=== PATIENT | female | born 1980 | race Two or more races ===

== ENCOUNTER 2017-05-23 16:16 | Inpatient (IN) | payer OTHER ==
[2017-05-23 17:05] VITALS: BMI 18.6
--- NOTE | 2017-05-23 20:43 | HP ---
CIWA Score - CIWA Score Nausea/Vomitin-Mild Nausea/No Vomiting Muscle Tremors: 3 Anxiety: 2 Agitation: 0-Normal Activity Paroxysmal Sweats: 2 Orientation: 2-Disoriented Date<2 days (reports today's date as 05/25/17) Tacttile Disturbances: 0-None Auditory Disturbances: 2-Mild Harshness/Frighten (reports has auditory hallucination, denies hallucinations at this time) Visual Disturbances: 1-Very Mild Sensitivity Headache: 3-Moderate CIWA-Ar Total Score: 16 Admission ROS S - HPI Chief Complaint: alcohol withdrawal symptoms Allergies/Adverse Reactions: Allergies Allergy/AdvReac Type Severity Reaction Status Date / Time morphine Allergy Severe Vomiting Verified 05/23/17 17:11 History of Present Illness: 36 yo female with hx of PCP, K2, alcohol and nicotine dependence is seeking detox for the first time. PMHX: depression, anxiety, and anemia. Reports in the past has auditory hallucinations in which the voices tell her she is worthless, no one loves her." Reports feeling extreme sadness after aunt from drug overdose recently. Denies suicidal / homicidal ideation, or suicide attempts. Denies overdose or seizure. Reports no period of sobriety. Reports after care plans to attend rehab. Exam Limitations: No Limitations - Ebola screening Have you traveled outside of the country in the last 21 days: No Have you had contact with anyone from an Ebola affected area: No Have you been sick,other than usual withdrawal symptoms: No Do you have a fever: No - Review of Systems Constitutional: Chills, Loss of Appetite, Night Sweats, Weakness EENT: reports: Nose Congestion (chonic) Respiratory: reports: Other (no SOB at this time, but get SOB during extreme weather, primarily during cold weather) Cardiac: reports: No Symptoms Reported GI: reports: Nausea, Poor Fluid Intake : reports: Frequency Musculoskeletal: reports: Back Pain Integumentary: reports: No Symptoms Reported Neuro: reports: Headache, Weakness Endocrine: reports: Excessive Sweating, Increased Thirst Hematology: reports: Anemia Psychiatric: reports: Orientated x3, Depressed Other Systems: Reviewed and Negative Patient History - Patient Medical History Hx Anemia: Yes Hx Asthma: No Hx Chronic Obstructive Pulmonary Disease (COPD): No Hx Cancer: No Hx Cardiac Disorders: No Hx Congestive Heart Failure: No Hx Hypertension: No Hx Hypercholesterolemia: No Hx Pacemaker: No HX Cerebrovascular Accident: No Hx Seizures: No Hx Dementia: No Hx Diabetes: No Hx Gastrointestinal Disorders: No Hx Liver Disease: No Hx Genitourinary Disorders: No Hx Sexually Transmitted Disorders: No Hx Renal Disease (ESRD): No Hx Thyroid Disease: No Hx Human Immunodeficiency Virus (HIV): No Hx Hepatitis C: No Hx Depression: Yes Hx Suicide Attempt: No Hx Bipolar Disorder: No Hx Schizophrenia: No - Patient Surgical History Past Surgical History: No - PPD History Previous Implant?: Yes Documented Results: Negative w/o proof Implanted On Prior [facility] Admission?: No - Reproductive History Last Menstrual Period: 04/27/17 Patient : No - Smoking Cessation Smoking history: Current every day smoker Have you smoked in the past 12 months: Yes Aproximately how many cigarettes per day: 3 Hx Chewing Tobacco Use: No Initiated information on smoking cessation: Yes 'Breaking Loose' booklet given: 05/23/17 - Substance & Tx. History Substance Use Type: Alcohol, Marijuana Hx Substance Use Treatment: No - Substances Abused Alcohol Route: Oral Frequency: Daily Amount used: 3-4 22 oz beers Age of first use: 16 Date of Last Use: 05/22/17 K2 Route: Smoking Frequency: Daily Amount used: 2 bags Age of first use: 32 Date of Last Use: 05/20/17 Family Disease History - Family Disease History Family Disease History: Heart Disease: Father (alive, HTN ), Mother (alive), Other: Father, Mother Other Family History: uncles and aunts have DM II Admission Physical Exam S - Vital Signs Vital Signs: Vital Signs - 24 hr 05/23/17 17:02 Temperature 96.6 F L Pulse Rate 90 Respiratory 18 Rate Blood Pressure 119/65 - Physical General Appearance: Yes: Appropriately Dressed, Mild Distress (patient was tearful through the assesment), Sweating, Anxious HEENTM: Yes: EOMI, Hearing grossly Normal, Normal ENT Inspection, Normocephalic , Normal Voice, JOSE ALEJANDRO, Pharynx Normal, Tm's normal, Other (dry mucous memebranes) Respiratory: Yes: Chest Non-Tender, Lungs Clear, Normal Breath Sounds, No Respiratory Distress, No Accessory Muscle Use Neck: Yes: Within Normal Limits Breast: Yes: Breast Exam Deferred Cardiology: Yes: Regular Rhythm, Regular Rate Abdominal: Yes: Normal Bowel Sounds, Non Tender, Flat, Soft Genitourinary: Yes: Frequency Back: Yes: Within Normal Limits Musculoskeletal: Yes: full range of Motion, Gait Steady, Pelvis Stable, Back pain Extremities: Yes: Normal Capillary Refill, Normal Inspection, Normal Range of Motion, Non-Tender Neurological: Yes: oracle soa architect II-XII NML intact, Fully Oriented, Alert, Motor Strength 5/5, Depressed Affect Integumentary: Yes: Normal Color, Warm, Moist, Other (poor skin turgor) Lymphatic: Yes: Within Normal Limits - Diagnostic (1) Bereavement Current Visit: Yes Status: Acute (2) Depression (emotion) Current Visit: Yes Status: Acute Qualifiers: Depression Type: dysthymia Qualified Code(s): F34.1 - Dysthymic disorder (3) Alcohol dependence with withdrawal Current Visit: Yes Status: Acute Qualifiers: Complication of substance-induced condition: uncomplicated Qualified Code(s ): F10.230 - Alcohol dependence with withdrawal, uncomplicated (4) Dehydration Current Visit: Yes Status: Acute (5) Nicotine dependence Current Visit: Yes Status: Acute Qualifiers: Nicotine product type: cigarettes (6) PCP dependence Current Visit: Yes Status: Acute (7) Cannabis dependence Current Visit: Yes Status: Acute Cleared for Admission [facility] - Detox or Rehab [facility] Level of Care: Medically Managed Detox Regimen/Protocol: Librium [facility] Breath Alcohol Content Breath Alcohol Content: 0 Urine Pregancy Test - Result Urine Test Results: Negative- NO Line Present Urine Drug Screen - Results Drug Screen Negative: Yes
[2017-05-23] MEDS ORDERED: MENTHOL/PHENOL 1 EACH UD MM PRN (21:00)
[2017-05-23] MEDS ORDERED: hydrOXYzine PAMOATE 50 MG CAPSULE (FP) PO PRN (21:00)
[2017-05-23] MEDS ORDERED: chlordiazePOXIDE HCL 25 MG CAPSULE PO ONE (21:00)
[2017-05-23] MEDS ORDERED: MAGNESIUM CITRATE 300 ML BOTTLE PO PRN (21:00)
[2017-05-23] MEDS ORDERED: P-EPHED 60MG/TRIPROLIDI 2.5MG TABLET PO PRN (21:00)
[2017-05-23] MEDS ORDERED: IBUPROFEN 400 MG TABLET (FP) PO PRN (21:00)
[2017-05-23] MEDS ORDERED: guaiFENesin/D-METHORPHAN HB 10 ML UNIT-DOSE CUPS PO PRN (21:00)
[2017-05-23] MEDS ORDERED: chlordiazePOXIDE HCL 25 MG CAPSULE PO PRN (21:00)
[2017-05-23] MEDS ORDERED: MAGNESIUM HYDROX 2400MG/30ML ORAL SUSPENSION 30 ML CUP PO PRN (21:00)
[2017-05-23] MEDS ORDERED: NICOTINE POLACRILEX 2 MG GUM BC PRN (21:00)
[2017-05-23] MEDS ORDERED: MAG HYDROX/AL HYDROX/SIMETH 30 ML UNIT-DOSE CUP PO PRN (21:00)
[2017-05-23] MEDS ORDERED: ACETAMINOPHEN 325 MG TABLET (FP) PO PRN (21:00)
[2017-05-23] MEDS ORDERED: LOPERAMIDE HCL 2 MG CAPSULE PO PRN (21:00)
[2017-05-23] MEDS ORDERED: MELATONIN 5 MG TABLETS PO PRN (22:00)
[2017-05-23] MEDS: chlordiazePOXIDE HCL 25 MG CAPSULE PO SCH (23:51)
[2017-05-23] MEDS: THIAMINE HCL 100 MG TABLET (FP) PO SCH (23:53)
[2017-05-24 02:05] LABS: URINE APPEARANCE SLCLOUDY; URINE BILIRUBIN NEGATIVE (<2.0 mg/dL); URINE BLOOD NEGATIVE (NEGATIVE); URINE COLOR YELLOW; URINE GLUCOSE (UA) NEGATIVE (NEGATIVE); URINE KETONE NEGATIVE (NEGATIVE); URINE LEUK ESTERASE NEGATIVE (NEGATIVE); URINE NITRITE NEGATIVE (NEGATIVE); URINE PROTEIN NEGATIVE (NEGATIVE); URINE UROBILINOGEN NEGATIVE mg/dL (0.2-1.0)
[2017-05-24] MEDS: chlordiazePOXIDE HCL 25 MG CAPSULE PO SCH ×3 (06:27→10:22)
[2017-05-24 10:02] LABS: HEMATOCRIT 27.6 % (32.4-45.2); HEMOGLOBIN 9.1 GM/dL (10.7-15.3); MCH 26.9 pg (25.7-33.7); MCHC 32.9 g/dl (32.0-36.0); MEAN PLT VOLUME 8.4 fl (7.5-11.1); PLATELET COUNT 301 K/MM3 (134-434); RBC 3.36 M/mm3 (3.60-5.2); RDW 17.2 % (11.6-15.6); WHITE BLOOD COUNT 4.5 K/mm3 (4.0-10.0)
[2017-05-24] MEDS: PRENATAL VITAMINS W/ FOLIC ACID TABLET (FP) PO SCH (10:19)
[2017-05-24] MEDS: NICOTINE 14 MG/24 HOURS TOPICAL PATCH TD SCH (10:19)
[2017-05-24 10:25] LABS: CHLORIDE 106 mmol/L (98-107); POTASSIUM 4.2 mmol/L (3.5-5.1); SODIUM 140 mmol/L (136-145)
[2017-05-24 10:46] LABS: ALBUMIN 2.9 g/dl (3.4-5.0); ALK PHOS 51 U/L (45-117); ANION GAP 6 (8-16); BILIRUBIN,TOTAL 0.3 mg/dL (0.2-1.0); BLOOD UREA NITROGEN 14 mg/dL (7-18); CALCIUM 7.8 mg/dL (8.5-10.1); CO2 28 mmol/L (21-32); CREATININE 0.7 mg/dL (0.55-1.02); GLUCOSE,RANDOM 84 mg/dL (74-106); SGOT/AST 19 U/L (15-37); SGPT/ALT 38 U/L (12-78)
[2017-05-24] MEDS ORDERED: diazePAM 5 MG TABLET PO PRN (10:50)
--- NOTE | 2017-05-24 10:56 | PN ---
S CIWA - CIWA Score Nausea/Vomitin Muscle Tremors: 3 Anxiety: 3 Agitation: 3 Paroxysmal Sweats: 1-Minimal Palms Moist Orientation: 0-Oriented Tacttile Disturbances: 1-Very Mild Itch/Numbness Auditory Disturbances: 1-Very Mild Visual Disturbances: 0-None Headache: 2-Mild CIWA-Ar Total Score: 17 [facility] Progress Note (SOAP) Subjective: ALERT,IRRITABLE,ANXIOUS,INTERRUPTED SLEEP,TREMOR,PAIN IN THE BODY Objective: 05/24/17 10:52 Vital Signs Temperature 97.3 F L 05/24/17 09:52 Pulse Rate 80 05/24/17 09:52 Respiratory Rate 20 05/24/17 09:52 Blood Pressure 114/58 05/24/17 09:52 O2 Sat by Pulse Oximetry (%) EKG NSR,NORMAL Laboratory Last Values WBC 4.5 K/mm3 (4.0-10.0) 05/24/17 07:00 RBC 3.36 M/mm3 (3.60-5.2) L 05/24/17 07:00 Hgb 9.1 GM/dL (10.7-15.3) L 05/24/17 07:00 Hct 27.6 % (32.4-45.2) L 05/24/17 07:00 MCV 82.0 fl (80-96) 05/24/17 07:00 MCH 26.9 pg (25.7-33.7) 05/24/17 07:00 MCHC 32.9 g/dl (32.0-36.0) 05/24/17 07:00 RDW 17.2 % (11.6-15.6) H 05/24/17 07:00 Plt Count 301 K/MM3 (134-434) 05/24/17 07:00 MPV 8.4 fl (7.5-11.1) 05/24/17 07:00 Urine Color Yellow 05/23/17 22:00 Urine Appearance Slcloudy 05/23/17 22:00 Urine pH 6.0 (5.0-8.0) 05/23/17 22:00 Ur Specific [place] 1.023 (1.001-1.035) 05/23/17 22:00 Urine Protein Negative (NEGATIVE) 05/23/17 22:00 Urine Glucose (UA) Negative (NEGATIVE) 05/23/17 22:00 Urine Ketones Negative (NEGATIVE) 05/23/17 22:00 Urine Blood Negative (NEGATIVE) 05/23/17 22:00 Urine Nitrite Negative (NEGATIVE) 05/23/17 22:00 Urine Bilirubin Negative (<2.0 mg/dL) 05/23/17 22:00 Urine Urobilinogen Negative mg/dL (0.2-1.0) 05/23/17 22:00 Ur Leukocyte Esterase Negative (NEGATIVE) 05/23/17 22:00 CMP,RPR PENDING Assessment: 05/24/17 10:54 WITHDRAWAL SYMPTOM,REGIMEN CHANGED TO VALIUM BY PATIENT'S REQUESTED,HISTORY OF ANEMIA,FERROUS SULFATE 325 MGS PO BID,ENSURE PLUS 120 MLS PO BID,PSYCHIATRIC EVALUATION MULTIPLE DRUG USE AND PCP Plan: CONTINUE DETOX
[2017-05-24] MEDS ORDERED: diazePAM 5 MG TABLET PO ONE (11:10)
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
[2017-05-24] MEDS: FERROUS SO4 325 MG TABLET (FP) PO SCH ×2 (12:25→22:22)
[2017-05-24] MEDS: diazePAM 5 MG TABLET PO SCH ×2 (14:58→22:22)
--- NOTE | 2017-05-24 16:46 | EKG ---
Test Reason : Blood Pressure : / mmHG Vent. Rate : 083 BPM Atrial Rate : 083 BPM P-R Int : 136 ms QRS Dur : 080 ms QT Int : 354 ms P-R-T Axes : 070 048 045 degrees QTc Int : 415 ms NORMAL SINUS RHYTHM NORMAL ECG NO PREVIOUS ECGS AVAILABLE Confirmed by MD Vik, Jorge ([id number]) on 05/24/2017 4:46:45 PM Referred By: Confirmed By:Jorge Chery MD
[2017-05-24] MEDS: QUEtiapine FUMARATE 50 MG TABLET PO SCH (22:22)
[2017-05-24] MEDS: THIAMINE HCL 100 MG TABLET (FP) PO SCH (22:22)
[2017-05-24] MEDS ORDERED: chlordiazePOXIDE HCL 25 MG CAPSULE PO SCH (23:00)
[2017-05-25] MEDS: diazePAM 5 MG TABLET PO SCH ×3 (06:58→22:46)
--- NOTE | 2017-05-25 10:07 | PN ---
S CIWA - CIWA Score Nausea/Vomitin Muscle Tremors: 3 Anxiety: 3 Agitation: 3 Paroxysmal Sweats: 1-Minimal Palms Moist Orientation: 0-Oriented Tacttile Disturbances: 1-Very Mild Itch/Numbness Auditory Disturbances: 1-Very Mild Visual Disturbances: 0-None Headache: 2-Mild CIWA-Ar Total Score: 17 [facility] Progress Note (SOAP) Subjective: ALERT,IRRITABLE,ANXIOUS,INTERRUPTED SLEEP,TREMOR Objective: 05/25/17 10:06 Vital Signs Temperature 97 F L 05/25/17 06:31 Pulse Rate 85 05/25/17 06:31 Respiratory Rate 18 05/25/17 06:31 Blood Pressure 110/64 05/25/17 06:31 O2 Sat by Pulse Oximetry (%) Laboratory Last Values WBC 4.5 K/mm3 (4.0-10.0) 05/24/17 07:00 RBC 3.36 M/mm3 (3.60-5.2) L 05/24/17 07:00 Hgb 9.1 GM/dL (10.7-15.3) L 05/24/17 07:00 Hct 27.6 % (32.4-45.2) L 05/24/17 07:00 MCV 82.0 fl (80-96) 05/24/17 07:00 MCH 26.9 pg (25.7-33.7) 05/24/17 07:00 MCHC 32.9 g/dl (32.0-36.0) 05/24/17 07:00 RDW 17.2 % (11.6-15.6) H 05/24/17 07:00 Plt Count 301 K/MM3 (134-434) 05/24/17 07:00 MPV 8.4 fl (7.5-11.1) 05/24/17 07:00 Sodium 140 mmol/L (136-145) 05/24/17 07:00 Potassium 4.2 mmol/L (3.5-5.1) 05/24/17 07:00 Chloride 106 mmol/L (98-107) 05/24/17 07:00 Carbon Dioxide 28 mmol/L (21-32) 05/24/17 07:00 Anion Gap 6 (8-16) L 05/24/17 07:00 BUN 14 mg/dL (7-18) 05/24/17 07:00 Creatinine 0.7 mg/dL (0.55-1.02) 05/24/17 07:00 Creat Clearance w eGFR > 60 (>60) 05/24/17 07:00 Random Glucose 84 mg/dL (74-106) 05/24/17 07:00 Calcium 7.8 mg/dL (8.5-10.1) L 05/24/17 07:00 Total Bilirubin 0.3 mg/dL (0.2-1.0) 05/24/17 07:00 AST 19 U/L (15-37) 05/24/17 07:00 ALT 38 U/L (12-78) 05/24/17 07:00 Alkaline Phosphatase 51 U/L (45-117) 05/24/17 07:00 Total Protein 6.0 g/dl (6.4-8.2) L 05/24/17 07:00 Albumin 2.9 g/dl (3.4-5.0) L 05/24/17 07:00 Urine Color Yellow 05/23/17 22:00 Urine Appearance Slcloudy 05/23/17 22:00 Urine pH 6.0 (5.0-8.0) 05/23/17 22:00 Ur Specific [place] 1.023 (1.001-1.035) 05/23/17 22:00 Urine Protein Negative (NEGATIVE) 05/23/17 22:00 Urine Glucose (UA) Negative (NEGATIVE) 05/23/17 22:00 Urine Ketones Negative (NEGATIVE) 05/23/17 22:00 Urine Blood Negative (NEGATIVE) 05/23/17 22:00 Urine Nitrite Negative (NEGATIVE) 05/23/17 22:00 Urine Bilirubin Negative (<2.0 mg/dL) 05/23/17 22:00 Urine Urobilinogen Negative mg/dL (0.2-1.0) 05/23/17 22:00 Ur Leukocyte Esterase Negative (NEGATIVE) 05/23/17 22:00 RPR Titer Nonreactive (NONREACTIVE) 05/24/17 07:00 HIV 1&2 Antibody Screen Negative 05/24/17 07:00 HIV P24 Antigen Negative 05/24/17 07:00 Assessment: 05/25/17 10:06 WITHDRAWAL SYMPTOM Plan: CONTINUE DETOX
[2017-05-25] MEDS: FERROUS SO4 325 MG TABLET (FP) PO SCH ×2 (10:46→22:27)
[2017-05-25] MEDS: PRENATAL VITAMINS W/ FOLIC ACID TABLET (FP) PO SCH (10:46)
[2017-05-25] MEDS: NICOTINE 14 MG/24 HOURS TOPICAL PATCH TD SCH (10:46)
[2017-05-25] MEDS: THIAMINE HCL 100 MG TABLET (FP) PO SCH (22:27)
[2017-05-25] MEDS: QUEtiapine FUMARATE 50 MG TABLET PO SCH (22:27)
[2017-05-25] MEDS ORDERED: chlordiazePOXIDE 5 MG CAPSULE PO SCH (23:00)
[2017-05-26] MEDS: NICOTINE 14 MG/24 HOURS TOPICAL PATCH TD SCH (10:10)
[2017-05-26] MEDS: diazePAM 5 MG TABLET PO SCH ×2 (10:10→22:07)
[2017-05-26] MEDS: FERROUS SO4 325 MG TABLET (FP) PO SCH ×2 (10:10→22:07)
[2017-05-26] MEDS: PRENATAL VITAMINS W/ FOLIC ACID TABLET (FP) PO SCH (10:10)
--- NOTE | 2017-05-26 11:17 | PN ---
S Progress Note (SOAP) Subjective: ALERT,IRRITABLE,ANXIOUS,INTERRUPTED SLEEP,FEEL WEAK Objective: 05/26/17 11:17 Vital Signs Temperature 97.1 F L 05/26/17 11:02 Pulse Rate 100 H 05/26/17 11:02 Respiratory Rate 20 05/26/17 11:02 Blood Pressure 115/65 05/26/17 11:02 O2 Sat by Pulse Oximetry (%) Assessment: 05/26/17 11:17 WITHDRAWAL SYMPTOM Plan: CONTINUE DETOX,DISCHARGE IN AM
[2017-05-26] MEDS: THIAMINE HCL 100 MG TABLET (FP) PO SCH (22:07)
[2017-05-26] MEDS: QUEtiapine FUMARATE 50 MG TABLET PO SCH (22:07)
[2017-05-26] MEDS ORDERED: chlordiazePOXIDE HCL 10 MG CAPSULE PO SCH (23:00)
--- NOTE | 2017-05-27 09:36 | PN ---
S Progress Note (SOAP) Subjective: ALERT,NO COMPLAINT Objective: 05/27/17 09:34 Vital Signs Temperature 97.7 F 05/27/17 06:00 Pulse Rate 90 05/27/17 06:00 Respiratory Rate 16 05/27/17 06:00 Blood Pressure 82/48 05/27/17 06:00 O2 Sat by Pulse Oximetry (%) Assessment: 05/27/17 09:35 DETOX COMPLETED,NO WITHDRAWAL SYMPTOM Plan: DISCHARGE TODAY,FOLLOW UP WITH AFTER CARE PROGRAM ARRANGEMENT
[2017-05-27] MEDS: diazePAM 5 MG TABLET PO SCH (09:39)
[2017-05-27] MEDS: PRENATAL VITAMINS W/ FOLIC ACID TABLET (FP) PO SCH (09:39)
[2017-05-27] MEDS: FERROUS SO4 325 MG TABLET (FP) PO SCH (09:39)
--- NOTE | 2017-05-27 09:39 | DS ---
[facility] Detox Discharge Summary Admission Date: 05/23/17 Discharge Date: 05/27/17 - History Present History: Alcohol Dependence, Cannabis Dependence, Cocaine Dependence Additional Comments: FOLLOW UP WITH AFTER CARE PROGRAM ARRANGEMENT Pertinent Past History: HISTORY OF ANEMIA WEIGHT LOSS - Physical Exam Results Vital Signs: Vital Signs Temperature 97.7 F 05/27/17 06:00 Pulse Rate 90 05/27/17 06:00 Respiratory Rate 16 05/27/17 06:00 Blood Pressure 82/48 05/27/17 06:00 O2 Sat by Pulse Oximetry (%) Pertinent Admission Physical Exam Findings: WITHDRAWAL SIGNS AND SYMPTOM Laboratory Last Values WBC 4.5 K/mm3 (4.0-10.0) 05/24/17 07:00 RBC 3.36 M/mm3 (3.60-5.2) L 05/24/17 07:00 Hgb 9.1 GM/dL (10.7-15.3) L 05/24/17 07:00 Hct 27.6 % (32.4-45.2) L 05/24/17 07:00 MCV 82.0 fl (80-96) 05/24/17 07:00 MCH 26.9 pg (25.7-33.7) 05/24/17 07:00 MCHC 32.9 g/dl (32.0-36.0) 05/24/17 07:00 RDW 17.2 % (11.6-15.6) H 05/24/17 07:00 Plt Count 301 K/MM3 (134-434) 05/24/17 07:00 MPV 8.4 fl (7.5-11.1) 05/24/17 07:00 Sodium 140 mmol/L (136-145) 05/24/17 07:00 Potassium 4.2 mmol/L (3.5-5.1) 05/24/17 07:00 Chloride 106 mmol/L (98-107) 05/24/17 07:00 Carbon Dioxide 28 mmol/L (21-32) 05/24/17 07:00 Anion Gap 6 (8-16) L 05/24/17 07:00 BUN 14 mg/dL (7-18) 05/24/17 07:00 Creatinine 0.7 mg/dL (0.55-1.02) 05/24/17 07:00 Creat Clearance w eGFR > 60 (>60) 05/24/17 07:00 Random Glucose 84 mg/dL (74-106) 05/24/17 07:00 Calcium 7.8 mg/dL (8.5-10.1) L 05/24/17 07:00 Total Bilirubin 0.3 mg/dL (0.2-1.0) 05/24/17 07:00 AST 19 U/L (15-37) 05/24/17 07:00 ALT 38 U/L (12-78) 05/24/17 07:00 Alkaline Phosphatase 51 U/L (45-117) 05/24/17 07:00 Total Protein 6.0 g/dl (6.4-8.2) L 05/24/17 07:00 Albumin 2.9 g/dl (3.4-5.0) L 05/24/17 07:00 Urine Color Yellow 05/23/17 22:00 Urine Appearance Slcloudy 05/23/17 22:00 Urine pH 6.0 (5.0-8.0) 05/23/17 22:00 Ur Specific [place] 1.023 (1.001-1.035) 05/23/17 22:00 Urine Protein Negative (NEGATIVE) 05/23/17 22:00 Urine Glucose (UA) Negative (NEGATIVE) 05/23/17 22:00 Urine Ketones Negative (NEGATIVE) 05/23/17 22:00 Urine Blood Negative (NEGATIVE) 05/23/17 22:00 Urine Nitrite Negative (NEGATIVE) 05/23/17 22:00 Urine Bilirubin Negative (<2.0 mg/dL) 05/23/17 22:00 Urine Urobilinogen Negative mg/dL (0.2-1.0) 05/23/17 22:00 Ur Leukocyte Esterase Negative (NEGATIVE) 05/23/17 22:00 RPR Titer Nonreactive (NONREACTIVE) 05/24/17 07:00 HIV 1&2 Antibody Screen Negative 05/24/17 07:00 HIV P24 Antigen Negative 05/24/17 07:00 Vital Signs Temperature 97.7 F 05/27/17 06:00 Pulse Rate 90 05/27/17 06:00 Respiratory Rate 16 05/27/17 06:00 Blood Pressure 82/48 05/27/17 06:00 O2 Sat by Pulse Oximetry (%) - Treatment Hospital Course: Detox Protocol Followed, Detoxed Safely, Responded well, Discharged Condition Good, Rehab Referral Accepted Patient has Accepted a Rehab Referral to: [facility] - Medication Discharge Medications: Ambulatory Orders Quetiapine Fumarate [Seroquel -] 50 mg PO HS #30 tablet 05/25/17 - Diagnosis (1) Alcohol dependence with withdrawal Current Visit: Yes Status: Acute Qualifiers: Complication of substance-induced condition: uncomplicated Qualified Code(s ): F10.230 - Alcohol dependence with withdrawal, uncomplicated (2) Cocaine dependence Current Visit: Yes Status: Acute (3) Cannabis dependence Current Visit: Yes Status: Acute (4) Dehydration Current Visit: Yes Status: Acute (5) Nicotine dependence Current Visit: Yes Status: Acute Qualifiers: Nicotine product type: cigarettes (6) PCP dependence Current Visit: Yes Status: Acute (7) Weight loss Current Visit: Yes Status: Acute (8) History of anemia Current Visit: Yes Status: Acute (9) Substance induced mood disorder Current Visit: Yes Status: Acute - AMA Did Patient Leave Against Medical Advice: No
--- NOTE | 2017-05-27 09:43 | PN ---
[facility] Progress Note Note: PATIENT DID NOT WANT TO GO TO REHAB,SEEN BY COUNSELOR,FOLLOW UP WITH AFTER CARE PROGRAM ARRANGEMENT
[2017-05-27 10:40] VITALS: BP 114/60; PULSE 99; TEMP 98.1
[2017-05-28] MEDS ORDERED: diazePAM 5 MG TABLET PO SCH (10:00)
== END 2017-05-27 10:05 | disposition home or self-care (01) | DRG 774 ==
LOC: YASAS 16:16 → Y6N 19:42
PROVIDERS: ADMIT Internal Medicine; ATTEND Internal Medicine
PROC: HZ2ZZZZ Detoxification Services for Substance Abuse Treatment (ICD-10-PCS; principal; 2017-05-23)
DX: F10.230 Alcohol dependence with withdrawal, uncomplicated (principal); F14.20 Cocaine dependence, uncomplicated; F12.20 Cannabis dependence, uncomplicated; F16.20 Hallucinogen dependence, uncomplicated; F17.210 Nicotine dependence, cigarettes, uncomplicated; F34.1 Dysthymic disorder; F19.24 Other psychoactive substance dependence with psychoactive substance-induced mood disorder; Z68.1 Body mass index [BMI] 19.9 or less, adult; Z86.2 Personal history of diseases of the blood and blood-forming organs and certain disorders involving the immune mechanism; Z63.4 Disappearance and death of family member; Z59.0 Homelessness; R63.4 Abnormal weight loss
CPT/HCPCS: 36415; 80053; 81003; 85027; 86593; 87389; 93005; 93010